=== PATIENT | male | born 1955 | race African-American/Black ===

== ENCOUNTER → 2016-12-26 | Outpatient (CLI) | payer OTHER ==
[~2016-12-26] MED LIST: ADVAIR DISKUS INH; AMBIEN 5 MG TABL5 M1 PO; ASPIR 8181 MG PO; ATROVENT HFA14 GM INH; AUGMENTIN 875-1 EACH PO; B COMPLEX-FOLI1 EACH PO; CLONIDINE HCL0.3 M3 PO; COMPAZINE10 MG PO; COREG25 MG PO; DEEP SEA NASAL44 M1; DELSYM COU30 MG/5 M1 PO; FLOMAX0.4 MG PO; GABAPENTIN 100100 MG PO; HYDROXYZINE HCL25 M1 PO; HYTRIN 5 M5 MG/1 CAP PO; IMDUR 30 MG TAB30 M1 PO; IRON325 PO; LASIX 40 MG TAB40 M2 PO; LIPITOR10 MG PO; MINOXIDIL10 MG PO; MUCINEX TA600 MG/TA2 PO; NEURONTIN100 MG PO; NICOTINE TRANSD21 M1; NITROGLYCERIN0.4 MG SUBLING; NORCO 5-325 TA1 EACH PO; NORVASC2.5 MG PO; OMEPRAZOLE20 M2 PO; PACERONE 200 M200 M1 PO; PERCOCET 10-321 EACH PO; PERCOCET 5-3251 EACH PO; PLAVIX 75 MG TA75 M1 PO; PREDNISONE50 MG PO; PROAIR HFA8.5 GM INH; PROCRIT 1010000 U/M1; PROCRIT 1010000 U/ML IJ; PROMETHAZINE-C120 ML PO; PROMETHAZINE/C118 ML PO; RENVELA800 MG PO; REQUIP 0.25 M0.25 M1 PO; SENSIPAR 30 MG30 M1 PO; SENSIPAR 30 MG30 MG PO; SEROQUEL 50 MG50 MG PO; TESSALON PERLE100 MG PO; TYLENOL325 MG PO; XANAX1 MG PO; ZANTAC 150MG T150 MG PO; ZOFRAN ODT4 MG PO; ZPAK PO
== END ==
LOC: ULTRA 14:34
DX: I74.3 Embolism and thrombosis of arteries of the lower extremities (principal)

== ENCOUNTER 2017-08-16 04:52 | Emergency (ER) | payer OTHER ==
[~2017-08-16] VITALS: Ht 175.3 cm; Wt 81.7 kg
--- NOTE | ~2017-08-16 | EKG ---
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: : 1955 Requested By: Petey Hardin Order Number: [id number] MD: Antonio Estevez Measurements Intervals [place] Rate: 86 P: 62 SC: 154 QRS: -22 QRSD: 99 T: 120 QT: 398 QTc: 476 Interpretive Statements Sinus rhythm Probable left atrial enlargement LVH with secondary repolarization abnormality Anterior Q waves, possibly due to LVH Electronically Signed On 08-16-2017 15:00:43 PHYSICAL THERAPIST CLINIC DIRECTOR by Antonio Estevez [email or web address] <ELECTRONICALLY SIGNED> By: Antonio Estevez MD 08/16/17 1500 [id number] Antonio Estevez MD /JANES
[2017-08-16 05:23] LABS: ABSOLUTE NEUTROPHILS 4.6 thou/uL (1.4-8.2); BASOPHILS 1.8 % (0.0-2.0); EOSINOPHILS 8.7 % (0.0-3.0); HEMATOCRIT 33.7 % (42.0-52.0); HEMOGLOBIN 10.5 gm/dL (14.0-18.0); LYMPHOCYTES 10.6 % (24.0-44.0); MCH 24.4 pg (26.0-34.0); MCHC 31.3 g/dL (28.0-37.0); MCV 77.9 fL (80.0-100.0); MONOCYTES 10.5 % (1.0-8.0); PLATELET COUNT 194 thou/uL (150-400); POLYS 68.4 % (36.0-66.0); RBC 4.32 mil/uL (4.50-6.00); RDW 20.8 % (10.5-14.5); WBC 6.7 thou/uL (4.0-11.0)
[2017-08-16 05:32] LABS: CALCIUM 9.1 mg/dL (8.5-10.1); CREATININE 12.6 mg/dL (0.7-1.3); POTASSIUM 4.7 mmol/L (3.5-5.1)
[2017-08-16 05:37] LABS: ALBUMIN 3.1 g/dL (3.4-5.0); MAGNESIUM 2.2 mg/dL (1.8-2.4); TOTAL BILIRUBIN 0.7 mg/dL (<0.1-1.0); TROPONIN-I 0.1 ng/mL (<0.06)
[2017-08-16 08:59] VITALS: BP 200/91
== END 2017-08-16 09:00 | disposition still patient (30) ==
LOC: ER 04:52
PROVIDERS: Emergency Medicine
DX: R07.89 Other chest pain (principal); I25.811 Atherosclerosis of native coronary artery of transplanted heart without angina pectoris; I12.0 Hypertensive chronic kidney disease with stage 5 chronic kidney disease or end stage renal disease; I50.9 Heart failure, unspecified; F41.9 Anxiety disorder, unspecified; F32.9 Major depressive disorder, single episode, unspecified; N18.6 End stage renal disease; Z99.2 Dependence on renal dialysis; Z88.6 Allergy status to analgesic agent; Z88.8 Allergy status to other drugs, medicaments and biological substances; Z88.1 Allergy status to other antibiotic agents; Z87.891 Personal history of nicotine dependence

== ENCOUNTER 2017-10-01 22:33 | Emergency (ER) | payer OTHER ==
[~2017-10-01] VITALS: Ht 175.3 cm; Wt 77.1 kg
--- NOTE | ~2017-10-01 | EKG ---
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 : 1955 Requested By: Avelina Dominique Order Number: [id number] MD: Matheus Guevara Measurements Intervals [place] Rate: 90 P: 47 IA: 173 QRS: -3 QRSD: 102 T: 0 QT: 386 QTc: 473 Interpretive Statements Sinus rhythm Probable left atrial enlargement Poor R wave progression Nonspecific ST and T wave abnormality Compared to ECG 08/16/2017 05:02:23 Lateral T wave abnormality is less pronounced Electronically Signed On 10-02-2017 7:24:39 MAXILLOFACIAL PROSTHODONTIST by Matheus Guevara [email or web address] <ELECTRONICALLY SIGNED> By: Matheus Guevara MD, [facility] 10/02/17 0724 [id number] Matheus Guevara MD, [facility] /EPI
[2017-10-01 23:08] LABS: HEMATOCRIT 24.4 % (42.0-52.0); HEMOGLOBIN 7.9 gm/dL (14.0-18.0); MCHC 32.2 g/dL (28.0-37.0); MCV 74.6 fL (80.0-100.0); PLATELET COUNT 228 thou/uL (150-400); RBC 3.27 mil/uL (4.50-6.00); WBC 7.3 thou/uL (4.0-11.0)
[2017-10-01 23:19] LABS: ANION GAP 8 mmol/L (7-16); BUN 79 mg/dL (7-18); CHLORIDE 100 mmol/L (98-107); CO2 32 mmol/L (21-32); CREATININE 13.8 mg/dL (0.7-1.3); GLUCOSE 134 mg/dL (74-106); POTASSIUM 4.7 mmol/L (3.5-5.1); SODIUM 140 mmol/L (136-145)
[2017-10-01 23:28] LABS: TROPONIN-I < 0.04 ng/mL (<0.06)
[2017-10-02] LABS: ATYPICAL LYMPHS 1 %
[2017-10-02 00:01] LABS: ANISOCYTOSIS 2+; OVALOCYTES 1+
[2017-10-02 00:07] LABS: POIKILOCYTOSIS 1+
[2017-10-02 01:58] VITALS: BP 127/96
== END 2017-10-02 01:58 | disposition home or self-care (01) ==
LOC: ER 22:33
PROVIDERS: Emergency Medicine
DX: R07.9 Chest pain, unspecified (principal); I13.2 Hypertensive heart and chronic kidney disease with heart failure and with stage 5 chronic kidney disease, or end stage renal disease; I50.9 Heart failure, unspecified; N18.6 End stage renal disease; Z99.2 Dependence on renal dialysis; Z87.01 Personal history of pneumonia (recurrent); Z87.891 Personal history of nicotine dependence; Z88.8 Allergy status to other drugs, medicaments and biological substances